=== PATIENT | male | born 1955 | race Caucasian/White ===

== ENCOUNTER 2016-11-28 04:01 | Observation (INO) | payer OTHER ==
[~2016-11-28] VITALS: Ht 175.3 cm; Wt 70.0 kg
[~2016-11-28 04:01] MED LIST: ALBU0.08 NEB; BUPR1TAB29 PO; CIAL2.5T PO; CYCL5TAB PO; DEXI60CA3 PO; GABA800T PO; METF500T PO; METHY10 PO; MIRA0.25 PO; MS C15TA7 PO; NITR.4; RITA20CA PO; TERA2CAP3 PO; TOPI1TAB97 PO; VENL150C39 PO; ZOCO20TA PO
[2016-11-28 04:05] VITALS: BP 145/87; PULSE 68; RESP 16; TEMP 98.7; O2SAT 99
[2016-11-28] MEDS ORDERED: RITA20CA PO (04:21)
[2016-11-28] MEDS ORDERED: ASPI325T PO (04:24)
[2016-11-28] MEDS ORDERED: MIRA0.25 PO (04:24)
[2016-11-28] MEDS ORDERED: DEXI60CA PO (04:24)
[2016-11-28] MEDS ORDERED: NITR0.4S SL (04:24)
[2016-11-28] MEDS: NITROGLYCERIN 0.4 MG SL 25 TABS/BTL SL SCH ×4 (04:41→04:55)
[2016-11-28] MEDS ORDERED: SODIUM CHLORIDE 0.9% FLUSH 5 ML FLUSH IVF PRN ×2 (04:45→06:00)
[2016-11-28] MEDS ORDERED: MORPHINE SULFATE 4 MG/ML INJ IV PUSH ONE (04:45)
[2016-11-28] MEDS ORDERED: SODIUM CHLORID 0.9% 500 ML INJ 500 ML IV ONE ×2 (04:45→06:00)
--- NOTE | 2016-11-28 04:53 | RADRPT ---
EXAM DATE/TIME: 11/28/2016 04:37 [facility] COMPARISON: No previous studies available for comparison. INDICATIONS : Chest pain. MEDICAL HISTORY : None. SURGICAL HISTORY : None. ENCOUNTER: Initial ACUITY: 1 day PAIN SCORE: 8/10 LOCATION: Bilateral chest FINDINGS: A single view of the chest demonstrates the lungs to be symmetrically aerated without evidence of mas s, infiltrate or effusion. The cardiomediastinal contours are unremarkable. Osseous structures are intact. CONCLUSION: The lungs are clear. Otis Armendariz MD on November 28, 2016 at 4:52 Board Certified Radiologist. This report was verified electronically.
--- NOTE | 2016-11-28 04:56 | PD ---
HPI Chief Complaint: Chest Pain Time Seen by Provider: 04:35 Travel History International Travel<30 days: No Contact w/Intl Traveler<30days: No Traveled to known affect area: No History of Present Illness HPI 61-year-old male arrives complaining of chest pain. It comes and goes. It starts at rest. It's worse with exertion. It is towards the left margin of the sternum. There is radiation into the left arm. He underwent coronary catheterization greater than 5 years ago and was told he had mild coronary disease. No cough or fever. He takes 325 mg of aspirin daily. In the ER at rest the pain is 7/10. Patient has a history of diabetes. He denies a family history of early onset coronary artery disease. He denies smoking. PFSH Past Medical History ADHD: Yes Anxiety: Yes Depression: Yes Chest Pain: Yes Cerebrovascular Accident: Yes Diabetes: Yes Patient Takes Glucophage: Yes Gastrointestinal Disorders: Yes (GASTROPRESIS) GERD: Yes Genitourinary: Yes (STAGE III KIDNEY DISEASE) Hiatal Hernia: Yes Kidney Stones: Yes Medical other: Yes (NARCOLEPSY) Respiratory: Yes Immunizations Current: Yes Migraines: Yes Pancreatitis: Yes Tetanus Vaccination: Unknown Past Surgical History Cholecystectomy: Yes Other Surgery: Yes (LEFT LEG SX) Social History Alcohol Use: No Tobacco Use: No Substance Use: No Allergies-Medications (Allergen,Severity, Reaction): Coded Allergies: Dilaudid (Verified Allergy, Severe, Itching, 11/28/16) Fentanyl (Verified Allergy, Severe, Itching, 11/28/16) Hydrocodone (Verified Allergy, Severe, Itching, 11/28/16) Oxycodone (Verified Allergy, Severe, Itching, 11/28/16) Seroquel (Verified Allergy, Severe, Itching, 11/28/16) Sulfa (Verified Allergy, Severe, Hives, 11/28/16) Tramadol (Verified Allergy, Severe, Itching, 11/28/16) Reglan (Verified Allergy, Intermediate, muscle fatigue, 11/28/16) Ibuprofen (Verified Adverse Reaction, Unknown, 11/28/16) can not take because of kidneys Tylenol (Verified Adverse Reaction, Unknown, 11/28/16) can not take because of liver problems Reported Meds & Prescriptions Reported Meds & Active Scripts Active Bupropion HCl ER 12 HR (Bupropion HCl) 150 Mg Tab 150 Mg PO DAILY Venlafaxine ER 24 HR (Venlafaxine HCl) 150 Mg Cap 150 Mg PO DAILY Reported Nitrostat SL (Nitroglycerin) 0.4 Mg Subl 0.4 Mg SL DIRECTED PRN 1 tablet under the tongue as needed for chest pain. Repeat every 5 minutes for a total of 3 DOSES or call 911 if NO relief. Aspirin 325 Mg Tab 325 Mg PO DAILY Mirapex (Pramipexole Dihydrochloride) 0.25 Mg Tab 0.5 Mg PO HS Dexilant (Dexlansoprazole) 60 Mg Cap 60 Mg PO DAILY Ritalin LA 24 HR (Methylphenidate HCl) 20 Mg Caper 20 Mg PO AT NOON Gabapentin 800 Mg Tab 800 Mg PO BID Ritalin LA 24 HR (Methylphenidate HCl) 20 Mg Caper 40 Mg PO DAILY Ritalin IR (Methylphenidate HCl) 10 Mg Tab 20 Mg PO BIDAC Zocor (Simvastatin) 20 Mg Tab 20 Mg PO DAILY Cialis (Tadalafil) 2.5 Mg Tab 2.5 Mg PO DAILY Do not exceed 1 dose/day. Terazosin (Terazosin HCl) 2 Mg Cap 2 Mg PO HS Topiramate 25 Mg Tab 25 Mg PO BID Albuterol Neb (Albuterol Sulfate) 2.5 Mg/3 Ml Neb 2.5 Mg NEB Q4HR NEB PRN Metformin (Metformin HCl) 500 Mg Tab 500 Mg PO BIDPC With meals Review of Systems Except as stated in HPI: all other systems reviewed are Neg Physical Exam Narrative GENERAL: 61-year-old male no acute distress SKIN: Warm and dry. HEAD: Atraumatic. Normocephalic. EYES: Pupils equal and round. No scleral icterus. No injection or drainage. ENT: No nasal bleeding or discharge. Mucous membranes pink and moist. NECK: Trachea midline. No JVD. CARDIOVASCULAR: Regular rate and rhythm. No murmur appreciated. RESPIRATORY: No accessory muscle use. Clear to auscultation. Breath sounds equal bilaterally. GASTROINTESTINAL: Abdomen soft, non-tender, nondistended. Hepatic and splenic margins not palpable. MUSCULOSKELETAL: No obvious deformities. No clubbing. No cyanosis. No edema. NEUROLOGICAL: Awake and alert. No obvious cranial nerve deficits. Motor grossly within normal limits. Normal speech. PSYCHIATRIC: Appropriate mood and affect; insight and judgment normal. Data Data Last Documented VS Vital Signs Date Time Temp Pulse Resp B/P Pulse Ox O2 Delivery O2 Flow Rate FiO2 11/28/16 04:05 98.7 68 16 145/87 99 Room Air Orders Electrocardiogram (11/28/16 04:35) Basic Metabolic Panel (Bmp) (11/28/16 04:35) Ckmb (Isoenzyme) Profile (11/28/16 04:35) Complete Blood Count With Diff (11/28/16 04:35) Magnesium (Mg) (11/28/16 04:35) Prothrombin Time / Inr (Pt) (11/28/16 04:35) Act Partial Throm Time (Ptt) (11/28/16 04:35) Troponin I (11/28/16 04:35) Chest, Single Ap (11/28/16 04:35) Ecg Monitoring (11/28/16 04:35) Bilateral Bp Monitoring (11/28/16 04:35) Iv Access Insert/Monitor (11/28/16 04:35) Oximetry (11/28/16 04:35) Oxygen Administration (11/28/16 04:35) Morphine Inj (Morphine Inj) (11/28/16 04:45) Sodium Chloride 0.9% Flush (Ns Flush) (11/28/16 04:45) Nitroglycerin Sl (Nitrostat Sl) (11/28/16 04:45) Sodium Chlorid 0.9% 500 Ml Inj (Ns 500 M (11/28/16 04:45) CKMB (11/28/16 04:40) CKMB% (11/28/16 04:40) Sodium Chlorid 0.9% 500 Ml Inj (Ns 500 M (11/28/16 06:00) Activity Bed Rest With Brp (11/28/16 05:55) Vital Signs (Adult) Q4H (11/28/16 05:55) Cardiac Rhythm .As Directed (11/28/16 05:55) ^ Notify Dr: Other .PRN (11/28/16 05:55) ^ Notify Dr. Parameters (11/28/16 05:55) Resp Oxygen Nasal Cannula (11/28/16 ) Ckmb (Isoenzyme) Profile (11/28/16 05:55) Ckmb (Isoenzyme) Profile (11/28/16 08:55) Troponin I (11/28/16 05:55) Troponin I (11/28/16 08:55) Electrocardiogram (11/28/16 05:55) Electrocardiogram (11/28/16 08:55) ^ Obtain (11/28/16 05:55) Sodium Chloride 0.9% Flush (Ns Flush) (11/28/16 06:00) Sodium Chloride 0.9% Flush (Ns Flush) (11/28/16 09:00) Morphine Inj (Morphine Inj) (11/28/16 06:00) Nitroglycerin 2% Oint (Nitroglycerin 2% (11/28/16 06:00) Nitroglycerin Sl (Nitrostat Sl) (11/28/16 06:00) Aspirin (Aspirin) (11/28/16 09:00) Temazepam (Restoril) (11/28/16 06:00) Alprazolam (Xanax) (11/28/16 06:00) Admit Order (Ed Use Only) (11/28/16 05:55) Labs Laboratory Tests Test 11/28/16 04:40 White Blood Count 7.5 TH/MM3 Red Blood Count 5.81 MIL/MM3 Hemoglobin 15.2 GM/DL Hematocrit 45.3 % Mean Corpuscular Volume 78.0 FL Mean Corpuscular Hemoglobin 26.2 PG Mean Corpuscular Hemoglobin 33.6 % Concent Red Cell Distribution Width 13.6 % Platelet Count 189 TH/MM3 Mean Platelet Volume 9.0 FL Neutrophils (%) (Auto) 55.6 % Lymphocytes (%) (Auto) 30.4 % Monocytes (%) (Auto) 8.9 % Eosinophils (%) (Auto) 4.5 % Basophils (%) (Auto) 0.6 % Neutrophils # (Auto) 4.2 TH/MM3 Lymphocytes # (Auto) 2.3 TH/MM3 Monocytes # (Auto) 0.7 TH/MM3 Eosinophils # (Auto) 0.3 TH/MM3 Basophils # (Auto) 0.0 TH/MM3 CBC Comment DIFF FINAL Differential Comment Prothrombin Time 11.0 SEC Prothromb Time International 1.0 RATIO Ratio Activated Partial 26.9 SEC Thromboplast Time Sodium Level 144 MEQ/L Potassium Level 3.5 MEQ/L Chloride Level 111 MEQ/L Carbon Dioxide Level 22.2 MEQ/L Anion Gap 11 MEQ/L Blood Urea Nitrogen 19 MG/DL Creatinine 1.11 MG/DL Estimat Glomerular Filtration 68 ML/MIN Rate Random Glucose 147 MG/DL Calcium Level 8.7 MG/DL Magnesium Level 2.2 MG/DL Total Creatine Kinase 1782 U/L Creatine Kinase MB 9.9 NG/ML Creatine Kinase MB % 0.6 % Troponin I 0.04 NG/ML MDM Medical Decision Making Medical Screen Exam Complete: Yes Emergency Medical Condition: Yes Medical Record Reviewed: Yes Differential Diagnosis NSTEMI, unstable angina, coronary vasospasm, PE, PTX, aortic dissection, pericarditis, myocarditis, endocarditis, PNA, esophageal disease, aneurysm, musculoskeletal etiologies, anxiety, cocaine/sympathomimetic abuse Narrative Course EKG reveals sinus rhythm at a rate of [address] elevation FL present Q waves present in leas III Tn 0.04 Total CK 1782 Last 24 hours Impressions Chest X-Ray 11/28/16 0435 Signed Impressions: Service Date/Time: Monday, November 28, 2016 04:37 - CONCLUSION: The lungs are clear. Otis Armendariz MD CBC & BMP Diagram 11/28/16 04:40 Further evaluation will be performed and the chest pain center. Diagnosis Primary Impression: Chest pain Qualified Code: R07.9 - Chest pain, unspecified type Admitting Information Admitting Physician Requests: Observation René Moulton MD Nov 28, 2016 04:56
[2016-11-28 05:17] LABS: AUTOMATED NEUTROPHIL # 4.2 TH/MM3 (1.8-7.7); BASOPHIL % 0.6 % (0.0-2.0); EOSINOPHIL # 0.3 TH/MM3 (0-0.4); EOSINOPHIL % 4.5 % (0.0-4.0); HEMATOCRIT 45.3 % (39.0-51.0); HEMO FLAGS DIFF FINAL; LYMPH % 30.4 % (9.0-44.0); LYMPHOCYTE # 2.3 TH/MM3 (1.0-4.8); MEAN CORPUSCULAR HEMOGLOBIN 26.2 PG (27.0-34.0); MEAN CORPUSCULAR HGB CONC 33.6 % (32.0-36.0); MONO % 8.9 % (0.0-8.0); NEUT % 55.6 % (16.0-70.0); PLATELET COUNT 189 TH/MM3 (150-450); RED BLOOD COUNT 5.81 MIL/MM3 (4.50-5.90); RED CELL DISTRIBUTION WIDTH 13.6 % (11.6-17.2); WHITE BLOOD COUNT 7.5 TH/MM3 (4.0-11.0)
[2016-11-28 05:35] LABS: APTT (PATIENT) 26.9 SEC (24.3-30.1)
[2016-11-28 05:38] LABS: BICARBONATE 22.2 MEQ/L (21.0-32.0); MAGNESIUM 2.2 MG/DL (1.5-2.5); POTASSIUM 3.5 MEQ/L (3.5-5.1)
[2016-11-28 05:59] LABS: CKMB 9.9 NG/ML (0.5-3.6)
[2016-11-28 06:00] VITALS: BP 131/71; PULSE 68; RESP 14; O2SAT 99
[2016-11-28] MEDS ORDERED: NITROGLYCERIN 0.4 MG SL 25 TABS/BTL SL PRN (06:00)
[2016-11-28] MEDS ORDERED: TEMAZEPAM 15 MG CAP PO PRN (06:00)
[2016-11-28] MEDS ORDERED: NITROGLYCERIN 2% OINT 1 GM PACKET TOP SCH (06:00)
[2016-11-28] MEDS ORDERED: ALPRAZolam 0.25 MG TAB PO PRN (06:00)
[2016-11-28] MEDS ORDERED: MORPHINE SULFATE 4 MG/ML INJ IV PRN (06:00)
[2016-11-28 06:06] VITALS: O2SAT 98
[2016-11-28 08:16] LABS: CKMB 8.9 NG/ML (0.5-3.6)
[2016-11-28] MEDS ORDERED: ASPIRIN 325 MG TAB PO SCH (09:00)
[2016-11-28] MEDS ORDERED: SODIUM CHLORIDE 0.9% FLUSH 5 ML FLUSH IVF SCH (09:00)
[2016-11-28] MEDS ORDERED: OMEG5CAP PO (09:59)
[2016-11-28] MEDS ORDERED: MULT-135 PO (09:59)
[2016-11-28] MEDS ORDERED: METHY10 PO (09:59)
[2016-11-28] MEDS ORDERED: TOPI1TAB36 PO (09:59)
[2016-11-28] MEDS ORDERED: VITA100T5 PO (09:59)
[2016-11-28] MEDS ORDERED: ALBUAER3 INH (09:59)
[2016-11-28] MEDS ORDERED: SODIUM CHLOR 0.9% 1000 ML INJ 1,000 ML IV SCH (10:33)
[2016-11-28] MEDS ORDERED: DEXTROSE 50% IN WATER 50 ML VIAL(D50) IV PRN (10:45)
[2016-11-28] MEDS ORDERED: GABAPENTIN 400 MG CAP PO SCH (10:45)
[2016-11-28] MEDS ORDERED: GLUCAGON 1 MG/ML VIAL IM/SQ PRN (10:45)
[2016-11-28] MEDS ORDERED: INSULIN ASPART SUPPLEMENTAL SCALE SQ SCH (11:00)
[2016-11-28 11:12] LABS: TOTAL BILIRUBIN ADULT 0.3 MG/DL (0.2-1.0)
[2016-11-28 11:13] LABS: INDIRECT BILIRUBIN 0.2 MG/DL (0.0-0.8)
[2016-11-28] MEDS ORDERED: PANTOPRAZOLE SOD 40 MG DELAYED RELEASE TAB PO SCH (11:15)
[2016-11-28 11:30] LABS: CKMB 8.2 NG/ML (0.5-3.6)
--- NOTE | 2016-11-28 12:41 | EKG ---
Date Performed: 11/28/2016 Time Performed: 04:04:48 PTAGE: 61 years EKG: Sinus rhythm WITH SINUS ARRHYTHMIA POSSIBLE LATERAL MYOCARDIAL INFARCTION ABNORMAL ECG NO PREVIOUS TRACING DOCTOR: Dillan Hubbard Interpretating Date/Time 11/28/2016 12:40:01
--- NOTE | 2016-11-28 12:44 | EKG ---
Date Performed: 11/28/2016 Time Performed: 07:06:42 PTAGE: 61 years EKG: SINUS BRADYCARDIA POSSIBLE LATERAL MYOCARDIAL INFARCTION ABNORMAL ECG INTERPRETATION BASED ON A DEFAULT AGE OF 42 YEARS NO PREVIOUS TRACING DOCTOR: Dillan Hubbard Interpretating Date/Time 11/28/2016 12:43:26
[2016-11-28] MEDS ORDERED: REGADENOSON INJ 0.4 MG/5 ML SYR ONE (12:45)
[2016-11-28 14:21] VITALS: BP 129/76; PULSE 59; RESP 17; O2SAT 98
--- NOTE | 2016-11-28 14:40 | TR ---
Date Performed: 11/28/2016 Time Performed: 12:53:50 DOCTOR: Dillan Hubbard DRUG LIST: CLINICAL HISTORY: CHEST PAIN REASON FOR TEST: CHEST PAIN REASON FOR ENDING: OBSERVATION: CONCLUSION: Lexiscan stress test was performed under standard four minute protocol. Radionuclide was injected one minute prior to ending the test. Developed chest pressure and shortness of breath. No electrocardiographic abnormalities were present to suggest ischemia. Recovery was quick and uneven tful with resolution of symptoms. Nuclear imaging and interpretation are pending. COMMENTS:
--- NOTE | 2016-11-28 14:46 | RADRPT ---
EXAM DATE/TIME: 11/28/2016 12:22 [facility] COMPARISON: No previous studies available for comparison. INDICATIONS : Left sided chest pain radiating to left arm. Angina. DOSE: 28.7 mCi Tc99m Myoview at stress. 8.6 mCi Tc99m Myoview at rest. 0.4 mg Lexiscan STRESS SYMPTOMS: Chest pressure and shortness of breath EJECTION FRACTION: 68% MEDICAL HISTORY : Diabetes mellitus type 2. Gastroparesis. Pancreatitis. GERD, stage III kidney disease and hernia. SURGICAL HISTORY : Cholecystectomy. Rotator cuff, right. Total knee replacement, left. Carpal tunnel and spinal fusion. ENCOUNTER: Initial ACUITY: 2 days PAIN SCALE: 7/10 LOCATION: Left chest TECHNIQUE: The patient underwent pharmacologic stress with infusion of prescribed dose. Continuous ECG tracing was monitored during stress. Gated SPECT imaging was performed after stress and conventional SPECT i maging was performed at rest. The examination was performed on a SPECT/CT scanner, both attenuation and non-corrected datasets were reviewed. FINDINGS: DISTRIBUTION: The maximum perfused segment at stress is in the anteroseptal wall. PERFUSION STUDY: The pattern of perfusion at stress is within normal limits. GATED STUDY: There is intact wall motion and thickening without hypokinetic or dyskinetic segments. CONCLUSION: 1. No fixed or reversible perfusion defect is identified. 2. Normal left ventricle wall motion with a calculated ejection fraction of 68%. RISK CATEGORY: Low (<1% Annual Mortality Rate) Ahsan Stringer MD on November 28, 2016 at 14:43 Board Certified Radiologist. This report was verified electronically.
--- NOTE | 2016-11-28 15:32 | HHI.DCPOC ---
Discharge Care Plan Diagnosis: (1) Chest pain (2) DM (diabetes mellitus) (3) Hypertension (4) Hyperlipidemia (5) Elevated CPK Goals to Promote Your Health HAVE CPK RECHECKED WITH YOUR PRIMARY CARE DOCTOR IN 2-3 DAYS. DISCONTINUE ZOCOR AND DISCUSS WITH YOUR PRIMARY CARE DOCTOR. TAKE EFFEXOR EVERY OTHER DAY FOR TWO WEEKS AND THEN DISCONTINUE IT. * To prevent worsening of your condition and complications * To maintain your health at the optimal level Directions to Meet Your Goals Take your medications as prescribed Follow your dietary instruction Follow activity as directed Keep your appointments as scheduled Take your immunizations and boosters as scheduled If your symptoms worsen call your PCP, if no PCP go to Urgent Care Center or Emergency Room Smoking is Dangerous to Your Health. Avoid second hand smoke Call the 24-hour hour crisis hotline for domestic abuse at Mario Alberto Jaquez Nov 28, 2016 15:32
[2016-11-28 16:20] VITALS: PULSE 61
[2016-11-28 16:41] VITALS: O2SAT 98
[2016-11-28] MEDS ORDERED: TERAZOSIN HCL 1 MG CAP PO SCH (21:00)
--- NOTE | 2016-11-28 23:05 | EKG ---
Date Performed: 11/28/2016 Time Performed: 10:01:38 PTAGE: 61 years EKG: SINUS BRADYCARDIA POSSIBLE LATERAL MYOCARDIAL INFARCTION ABNORMAL ECG PREVIOUS TRACING : 11/28/2016 07.06 Compared to prior tracing no significant change DOCTOR: Prashanth Moulton Interpretating Date/Time 11/28/2016 23:04:47
--- NOTE | 2016-11-29 09:34 | MH ---
cc: EMMY JOINER DATE OF ADMISSION: 11/28/2016 DATE OF : 1955 CHIEF COMPLAINT Chest pain. HISTORY OF PRESENT ILLNESS This is a 61-year-old male who presents to the ED via [facility] with a complaint of discomfort in his chest that awoke him about quarter to three this morning. The discomfort was in center/left of his chest. He described it as a pressure. It was 8-9 out of 10 at its worse level, currently about a 4 out of 10. He states it is still there. He has really found nothing to worsen it. IV morphine in the ER did seem to help. He states he was not given sublingual nitroglycerin secondary to the fact that he takes daily Cialis for ED. He states he was told that he had mild coronary artery disease via heart catheterization. When asked how long ago that was he states "I don't know, a long time ago." Asked if more than 5 years ago, he stated "yes", more than 10 years ago, "yes", but that he really was not sure. He also states he has had stress tests in the past. Cannot recall the last time he had a nuclear stress test, states its been years. Denies recent illnesses. Denies fevers or chills. He states he actually has been in multiple ERs over the years for chest discomfort on a regular basis. Basically discovered that it was related to stress and depression. He states that it seems to have improved after he got a divorce. He is currently engaged to someone else and states he has been under a lot less stress and the discomfort does not recur as much. He is not followed by a custom protection officer. His primary care physician is Dr. Villela, but he is retired from the [employer]. PAST MEDICAL HISTORY 1. Diabetes. 2. Hyperlipidemia. 3. Hypertension. 4. Stated history of CAD. 5. Depression. 6. Anxiety. 7. Kidney stones. 8. Narcolepsy. 9. Sleep apnea. 10. BPH. 11. History of stage II liver disease which he states is RIOS. FAMILY HISTORY Denies family history of CAD. SOCIAL HISTORY Quit smoking 35 years ago, prior to that he smoked three packs of cigarettes daily for 10 years. He states he has had no alcohol or illicit drugs in over 35 years. PAST SURGICAL HISTORY 1. Heart catheterization with intervention. 2. He has had arthroscopy of his left knee x2. 3. Right rotator cuff repair. 4. Lumbar fusion. 5. Cholecystectomy. ALLERGIES DILAUDID, FENTANYL, HYDROCODONE, OXYCODONE, SEROQUEL, SULFA, TRAMADOL, REGLAN. Ibuprofen and Tylenol he was told avoid secondary to stage II kidney disease and liver disease. MEDICATIONS 1. Terazosin. 2. Gabapentin. 3. Topamax. 4. Bupropion. 5. Venlafaxine. 6. Albuterol inhaler. 7. Metformin. 8. Mirapex. 9. Simvastatin. 10. Multivitamin. 11. Nitrostat. 12. Aspirin. 13. Ermias-3 fatty acids. 14. Cialis. 15. Dexilant. 16. Ritalin. 17. Ascorbic acid. REVIEW OF SYSTEMS GENERAL: Denies fever or chills. Denies recent illnesses. HEENT: Denies headache, earache, sore throat, difficulty swallowing. CARDIOVASCULAR: Describes the discomfort as mentioned above. Denies diaphoresis. Denies sensation of heart beating rapidly or irregularly. Denies syncope. RESPIRATORY: Denies shortness of breath or inspirational chest discomfort. Denies coughing, wheezing or hemoptysis. GI: Denies nausea or vomiting. Denies diarrhea, constipation, blood in stool. Denies abdominal pain. MUSCULOSKELETAL: He complains of chronic back pain. Denies calf pain or swelling. NEUROVASCULAR: Denies headache or dizziness. ENDOCRINE: Denies polyuria or polydipsia. HEMATOLOGIC: Denies easy bruising. SKIN: Denies rash or itching. PHYSICAL EXAMINATION VITAL SIGNS: In the emergency department initially included a blood pressure 145/87, heart rate 68, respiration 16, pulse oximetry 99% on room air and he was afebrile. Most recent vital signs include blood pressure 131/71, heart rate 68, respirations 14, pulse oximetry 99% on room air. GENERAL: The patient is seen in the examination room in no apparent distress. He is pleasant. He speaks in clear and complete sentences. HEENT: Head is atraumatic and normocephalic. NECK: Neck is supple without lymphadenopathy. Trachea is midline. No JVD or carotid bruits. CARDIOVASCULAR: Regular rate and rhythm without murmur, gallop or rub. RESPIRATORY: Lungs are clear to auscultation bilaterally. No wheezing, rales or rhonchi. There is no reproducible chest wall discomforts. No use of accessory muscles. GI: Abdomen is nontender, nondistended. Bowel sounds are normal. No guarding or rebound. No obvious pulsatile mass or bruit. No CVA tenderness. Strong femoral pulses bilaterally. MUSCULOSKELETAL: Patient moving upper and lower extremities freely. No joint tenderness or edema. No calf tenderness or edema, no Homans' sign. Strong pulses in upper and lower extremities. NEUROVASCULAR: The patient is alert and oriented. Cranial II-XII grossly intact. No focal deficits and speech is clear. SKIN: No rash and turgor is normal. LABORATORY DATA CBC is unremarkable. Coagulation studies are unremarkable. A basic metabolic panel has a BUN mildly elevated at 19. Glucose elevated at 147, GFR decreased 68, otherwise unremarkable BMP. Serial cardiac enzymes have troponins that are normal for the first sets 0.04 and 0.04. His CPKs were elevated with initial one being 1782 and a second being 1483. CK-MB also were elevated at 9.9 and 8.9, however, CK-MB percents were normal x2, third set is pending. IMAGING STUDIES Single view chest x-ray read by radiology as lungs are clear. EKGs Have been sinus rhythm, sinus bradycardia. One EKG showed non-specific lateral ST-T changes. ASSESSMENT AND PLAN 1. Chest pain: The patient will continue to have cardiac enzymes and EKGs for ruling out purposes. His CPKs are elevated but percent was normal for first two sets. Troponins were normal on first two sets. If third troponin were to be normal he will be stress tested with a Lexiscan. If that were to be unremarkable, he will be discharged home. He was given a liter of IV fluids in the ER. He will be given another liter of IV fluids here. He needs to have his CPKs re-addressed with his PCP within the next couple of days. 2. Diabetes: He was on Metformin. Will have sliding scale insulin coverage. He needs to follow a diabetic diet. 3. Hyperlipidemia: ___ statin. He needs to discontinue statin until advised by his primary care physician otherwise. 4. Stated history of CAD: Will reassess with stress testing. 5. Depression: Continue current medication. 6. Anxiety: Continue current medication. 7. BPH: Continue current medication. The patient is stable at this time. He is agreeable to this plan. Dictated by: Mario Alberto Jaquez PA-C MD JAIRO Parmar/CARI /10:24 AM /9:32 AM
[2016-12-15] MEDS ORDERED: VENL150C39 PO (09:52)
[2016-12-15] MEDS ORDERED: BUPR1TAB29 PO (09:52)
[2017-01-12] MEDS ORDERED: ATOR40TA16 PO (09:31)
[2017-01-12] MEDS ORDERED: MIRA0.25 PO (09:48)
[2017-02-28] MEDS ORDERED: VENL150C39 PO (16:13)
[2017-02-28] MEDS ORDERED: BUPR1TAB29 PO (16:14)
== END 2016-11-28 17:30 | disposition home or self-care (01) ==
LOC: NEPE 04:01 → NEDA 05:57 → NEPHCDU 11:48
PROVIDERS: ADMIT Family Medicine; ATTEND Family Medicine
DX: R07.9 Chest pain, unspecified (principal); E11.9 Type 2 diabetes mellitus without complications; I10 Essential (primary) hypertension; E78.5 Hyperlipidemia, unspecified; I25.10 Atherosclerotic heart disease of native coronary artery without angina pectoris; R94.31 Abnormal electrocardiogram [ECG] [EKG]; F32.9 Major depressive disorder, single episode, unspecified; N40.0 Benign prostatic hyperplasia without lower urinary tract symptoms; K21.9 Gastro-esophageal reflux disease without esophagitis; G47.30 Sleep apnea, unspecified; F90.9 Attention-deficit hyperactivity disorder, unspecified type; F41.9 Anxiety disorder, unspecified; G47.419 Narcolepsy without cataplexy; Z86.73 Personal history of transient ischemic attack (TIA), and cerebral infarction without residual deficits; Z87.442 Personal history of urinary calculi; Z87.891 Personal history of nicotine dependence; Z98.1 Arthrodesis status; Z96.652 Presence of left artificial knee joint; Z79.84 Long term (current) use of oral hypoglycemic drugs
CPT/HCPCS: 71010; 78452; 80048; 80076; 82550; 82552; 83735; 84484; 85025; 85610; 85730; 93005; 93017; 96361; 96374; 99285; A9502; G0378; J2270; J2785; J7030; J7040

== ENCOUNTER 2017-01-17 14:19 | Emergency (ER) | payer OTHER ==
[~2017-01-17] VITALS: Ht 167.6 cm; Wt 83.0 kg
[~2017-01-17 14:19] MED LIST changes: -ALBU0.08 NEB; +ALBUAER3 INH; +ASPI325T PO; +ATOR40TA16 PO; -CYCL5TAB PO; +DEXI60CA PO; -DEXI60CA3 PO; -GABA800T PO; -METF500T PO; -MS C15TA7 PO; +MULT-135 PO; -NITR.4; +OMEG5CAP PO; +TOPI1TAB36 PO; -TOPI1TAB97 PO; +VITA100T5 PO; -ZOCO20TA PO
[2017-01-17 14:27] VITALS: BP 164/78; PULSE 88; RESP 15; TEMP 97.8; O2SAT 99
--- NOTE | 2017-01-17 14:45 | PD ---
HPI Chief Complaint: Musculoskeletal Complaint Time Seen by Provider: 14:45 Travel History International Travel<30 days: No Contact w/Intl Traveler<30days: No Traveled to known affect area: No History of Present Illness HPI 61-year-old male presents to emergency Department with right sided thumb swelling, erythema, and pain. Patient denies any specific injury. He denies fever chills or any type of bite or skin injury. Patient has no history of gout in the past. 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 Pain today is 10 over 10 with any movement or palpation. Patient denies any change in his diet and recent weeks. He states it is been sore off and on over the past couple of weeks but much worse upon waking this morning. Patient has multiple allergies including dialyzed, fentanyl, hydrocodone, ibuprofen, oxycodone, Reglan, Seroquel, sulfa, tramadol, and Tylenol. PFSH Past Medical History ADHD: Yes Anxiety: Yes Depression: Yes Cardiovascular Problems: Yes ("MILD HEART DISEASE") Chest Pain: Yes Cerebrovascular Accident: Yes (TIA) Diabetes: Yes Gastrointestinal Disorders: Yes (GASTROPRESIS) GERD: Yes Genitourinary: Yes (STAGE III KIDNEY DISEASE) Hiatal Hernia: Yes Kidney Stones: Yes Respiratory: Yes Immunizations Current: Yes Migraines: Yes Pancreatitis: Yes Past Surgical History Cholecystectomy: Yes Other Surgery: Yes (LEFT LEG SX) Social History Alcohol Use: No Tobacco Use: No Substance Use: No Allergies-Medications (Allergen,Severity, Reaction): Coded Allergies: Dilaudid (Verified Allergy, Severe, Itching, 01/17/17) Fentanyl (Verified Allergy, Severe, Itching, 01/17/17) Hydrocodone (Verified Allergy, Severe, Itching, 01/17/17) Oxycodone (Verified Allergy, Severe, Itching, 01/17/17) Seroquel (Verified Allergy, Severe, Itching, 01/17/17) Sulfa (Verified Allergy, Severe, Hives, 01/17/17) Tramadol (Verified Allergy, Severe, Itching, 01/17/17) Reglan (Verified Allergy, Intermediate, muscle fatigue, 01/17/17) Ibuprofen (Verified Adverse Reaction, Unknown, 01/17/17) can not take because of kidneys Tylenol (Verified Adverse Reaction, Unknown, 01/17/17) can not take because of liver problems Reported Meds & Prescriptions Reported Meds & Active Scripts Active Mirapex (Pramipexole Dihydrochloride) 0.25 Mg Tab 2 Tab PO HS Atorvastatin (Atorvastatin Calcium) 40 Mg Tab 40 Mg PO HS Reported Venlafaxine ER 24 HR (Venlafaxine HCl) 150 Mg Cap 150 Mg PO DAILY Bupropion HCl ER 12 HR (Bupropion HCl) 150 Mg Tab 150 Mg PO DAILY Vitamin C (Ascorbic Acid) Unknown Strength Tab 1 Tab PO BID Fish Oil 1200 mg (Carefree-3 Fatty Acids) 1 Cap Cap 1,200 Mg PO BID Multi Vitamin (Multiple Vitamin) 1 Tab Tab 1 Tab PO DAILY AT 12NOON Ritalin IR (Methylphenidate HCl) 10 Mg Tab 10 Mg PO DAILY AT 12NOON Topiramate 50 Mg Tab 50 Mg PO BID In the am and at bedtime Proair Hfa 8.5 GM Inh (Albuterol Sulfate) 90 Mcg/Act Aer 2 Puff INH Q4-6H PRN 108 mcg/actuation Aspirin 325 Mg Tab 325 Mg PO HS Dexilant (Dexlansoprazole) 60 Mg Cap 60 Mg PO DAILY Ritalin LA 24 HR (Methylphenidate HCl) 20 Mg Caper 20 Mg PO AT NOON Ritalin LA 24 HR (Methylphenidate HCl) 20 Mg Caper 40 Mg PO DAILY Ritalin IR (Methylphenidate HCl) 10 Mg Tab 20 Mg PO DAILY IN THE AM Cialis (Tadalafil) 2.5 Mg Tab 2.5 Mg PO DAILY Do not exceed 1 dose/day. Terazosin (Terazosin HCl) 2 Mg Cap 2 Mg PO HS Review of Systems Except as stated in HPI: all other systems reviewed are Neg General / Constitutional: No: Fever Eyes: No: Visual changes HENT: No: Headaches Cardiovascular: No: Chest Pain or Discomfort Respiratory: No: Shortness of Breath Gastrointestinal: No: Abdominal Pain Genitourinary: No: Dysuria Musculoskeletal: Positive: Arthralgias, Limited ROM, Pain (see history present illness.) Skin: No Rash Neurologic: No: Weakness Psychiatric: No: Depression Endocrine: No: Polydipsia Hematologic/Lymphatic: No: Easy Bruising Physical Exam Narrative GENERAL: Patient appears in no acute distress. SKIN: Warm and dry. Normal color. Normal turgor. Patient has erythema at the base of the right MIP joint of the thumb. There is no swelling or signs of skin injury or bite. HEAD: Atraumatic. Normocephalic. EYES: Pupils equal and round. No scleral icterus. No injection or drainage. ENT: No nasal bleeding or discharge. Mucous membranes pink and moist. Pharynx is normal. NECK: Trachea midline. Neck is supple. CARDIOVASCULAR: Regular rate and rhythm. RESPIRATORY: No accessory muscle use. Clear to auscultation. Breath sounds equal bilaterally. MUSCULOSKELETAL: Extremities without clubbing, cyanosis, or edema. No obvious deformities. NEUROLOGICAL: Awake and alert. No obvious cranial nerve deficits. Motor grossly within normal limits. Five out of 5 muscle strength in the arms and legs. Normal speech. PSYCHIATRIC: Appropriate mood and affect; insight and judgment normal. Data Data Last Documented VS Vital Signs Date Time Temp Pulse Resp B/P Pulse Ox O2 Delivery O2 Flow Rate FiO2 01/17/17 14:27 97.8 88 15 164/78 99 MDM Medical Decision Making Medical Screen Exam Complete: Yes Emergency Medical Condition: Yes Differential Diagnosis Right thumb pain. Right thumb arthralgia. Gouty arthritis. Narrative Course Patient is medically stable at time of exam. 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 Patient will be treated on an outpatient basis with prednisone 20 mg twice a day. Is given a first dose of 60 mg prednisone by mouth now. Patient is given information regarding gout and diet. Patient should follow with his primary care physician in the next week to ensure improvement. Patient should return to work Department with worsening symptoms as discussed. 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 Patient will be treated on an outpatient basis with prednisone 20 mg twice a day. Is given a first dose of 60 mg prednisone by mouth now. Patient is given information regarding gout and diet. Patient should follow with his primary care physician in the next week to ensure improvement. Patient should return to work Department with worsening symptoms as discussed. Med/Other Pt SpecificInfo: Prescription(s) given Disposition: DISCHARGE HOME Condition: Stable Flavio Arriola Jan 17, 2017 14:45
[2017-01-17] MEDS ORDERED: predniSONE 20 MG TAB PO ONE (15:00)
[2017-01-17] MEDS ORDERED: PRED20 PO (15:03)
[2017-02-28] MEDS ORDERED: VENL150C39 PO (16:13)
[2017-02-28] MEDS ORDERED: BUPR1TAB29 PO (16:14)
== END 2017-01-17 15:21 | disposition home or self-care (01) ==
LOC: NEPB 14:19
DX: M10.9 Gout, unspecified (principal); E11.9 Type 2 diabetes mellitus without complications
CPT/HCPCS: 99282; J7512

== ENCOUNTER 2017-12-13 23:03 | Emergency (ER) | payer OTHER ==
[~2017-12-13] VITALS: Ht 166.4 cm; Wt 81.5 kg
[~2017-12-13 23:03] MED LIST changes: +AMOX875T PO; -ASPI325T PO; +ASPI81TA23 PO; +BUPR150T12 PO; -BUPR1TAB29 PO; -DEXI60CA PO; +DEXI60CA3 PO; +FLUT50SP EACH NARE; +METF500T PO; -MULT-135 PO; +MULTTAB67 PO; -OMEG5CAP PO; -TOPI1TAB36 PO; +TOPI50TA7 PO; +TRIA.1%T TOPICAL; +VALS1TAB65 PO; +VIAG50TA PO; -VITA100T5 PO
[2017-12-13 23:05] VITALS: BP 142/73; PULSE 65; RESP 16; TEMP 97.9; O2SAT 98
[2017-12-14] MEDS ORDERED: CYCL5TAB PO (01:16)
--- NOTE | 2017-12-14 01:17 | PD ---
HPI Chief Complaint: Back/ Neck Pain or Injury Time Seen by Provider: 00:47 Travel History International Travel<30 days: No Contact w/Intl Traveler<30days: No Traveled to known affect area: No History of Present Illness HPI Patient is a 62-year-old male presenting to the emergency department for evaluation of 4 hours of back pain. Patient denies any injury or trauma. He states he has a chronic history of back pain. He reports that the pain is in his mid lower back. He denies any numbness, tingling, weakness, paresthesia, bladder bowel incontinence. Patient states that he lifted his tackle box today which could have injured his back. He has not fallen, tripped, slipped. He denies any dysuria. He states the pain is sore and tight, he rates his pain a 6 out of 10. Patient reports an allergy to Tylenol, ibuprofen. Symptoms started suddenly, there are no alleviating factors, pain is exacerbated with movement. PFSH Past Medical History ADHD: Yes Anxiety: Yes Depression: Yes Cardiovascular Problems: Yes ("MILD HEART DISEASE") Chest Pain: Yes Cerebrovascular Accident: Yes (TIA) Diabetes: Yes Patient Takes Glucophage: Yes Diminished Hearing: No Gastrointestinal Disorders: Yes (GASTROPRESIS) GERD: Yes Genitourinary: Yes (STAGE III KIDNEY DISEASE) Hiatal Hernia: Yes Hypertension: Yes (BP UNDER CONTROL W/O MEDICATIONS NOW) Kidney Stones: Yes Medical other: Yes (MILD NARCOLEPSY, ROS) Musculoskeletal: Yes (CHRONIC BACK/NECK PAIN) Neurologic: Yes (TREMORS, TBI) Respiratory: Yes Immunizations Current: Yes Migraines: Yes Pancreatitis: Yes Sleep Apnea: Yes (CPAP) Past Surgical History Cholecystectomy: Yes Other Surgery: Yes (BACK SX, LEFT LEG VEINS) Social History Alcohol Use: No Tobacco Use: No Substance Use: No Allergies-Medications (Allergen,Severity, Reaction): Coded Allergies: Sulfa (Sulfonamide Antibiotics) (Verified Allergy, Severe, Hives, 12/13/17) fentanyl (Verified Allergy, Severe, Itching, 12/13/17) hydrocodone (Verified Allergy, Severe, Itching, 12/13/17) hydromorphone (Verified Allergy, Severe, Itching, 12/13/17) oxycodone (Verified Allergy, Severe, Itching, 12/13/17) quetiapine (Verified Allergy, Severe, Itching, 12/13/17) tramadol (Verified Allergy, Severe, Itching, 12/13/17) metoclopramide (Verified Allergy, Intermediate, muscle fatigue, 12/13/17) acetaminophen (Verified Adverse Reaction, Unknown, 12/13/17) can not take because of liver problems ibuprofen (Verified Adverse Reaction, Unknown, 12/13/17) can not take because of kidneys Reported Meds & Prescriptions Reported Meds & Active Scripts Active Amoxicillin 875 Mg Tab 875 Mg PO BID Triamcinolone Topical (Triamcinolone Acetonide) 0.1% Cream 1 Applic TOPICAL BID Valsartan 160 Mg Tab 160 Mg PO DAILY Cialis (Tadalafil) 2.5 Mg Tab 2.5 Mg PO DAILY Do not exceed 1 dose/day. Mirapex (Pramipexole Dihydrochloride) 0.25 Mg Tab 2 Tab PO HS Topiramate 50 Mg Tab 50 Mg PO BID In the am and at bedtime Viagra (Sildenafil Citrate) 50 Mg Tab 50 Mg PO DAILY PRN Bupropion Sr 12 HR (Bupropion ER 12 HR (Smoking Deterrent)) 150 Mg Tab 150 Mg PO ONCE Atorvastatin (Atorvastatin Calcium) 40 Mg Tab 40 Mg PO HS Metformin (Metformin HCl) 500 Mg Tab 500 Mg PO BID With a meal Venlafaxine ER 24 HR (Venlafaxine HCl) 150 Mg Cap 150 Mg PO DAILY Terazosin (Terazosin HCl) 2 Mg Cap 4 Mg PO HS take two tabs at night Fluticasone Nasal [place] 50 Mcg/Act Naspr 50 Mcg EACH NARE BID 50 mcg/spray Dexilant (Dexlansoprazole) 60 Mg Cap.bp 60 Mg PO DAILY Reported Aspirin EC (Aspirin) 81 Mg Tabdr 81 Mg PO DAILY Multiple Vitamin 1 Tab 1 Tab PO DAILY Ritalin IR (Methylphenidate HCl) 10 Mg Tab 10 Mg PO DAILY AT 12NOON Proair Hfa 8.5 GM Inh (Albuterol Sulfate) 90 Mcg/Act Aer 2 Puff INH Q4-6H PRN 108 mcg/actuation Ritalin LA 24 HR (Methylphenidate HCl) 20 Mg Caper 20 Mg PO AT NOON Ritalin LA 24 HR (Methylphenidate HCl) 20 Mg Caper 40 Mg PO DAILY Ritalin IR (Methylphenidate HCl) 10 Mg Tab 20 Mg PO DAILY IN THE AM Review of Systems Except as stated in HPI: all other systems reviewed are Neg Musculoskeletal: Positive: Myalgias, Cramping, Pain Physical Exam Narrative GENERAL: Well-developed, well-nourished, alert male. Resting comfortably in no acute distress. SKIN: Warm and dry. HEAD: Atraumatic. Normocephalic. EYES: Pupils equal and round. No scleral icterus. No injection or drainage. ENT: No nasal bleeding or discharge. Mucous membranes pink and moist. NECK: Trachea midline. No JVD. CARDIOVASCULAR: Regular rate and rhythm. RESPIRATORY: No accessory muscle use. Clear to auscultation. Breath sounds equal bilaterally. GASTROINTESTINAL: Abdomen soft, non-tender, nondistended. Hepatic and splenic margins not palpable. MUSCULOSKELETAL: Extremities without clubbing, cyanosis, or edema. No obvious deformities. Mild tenderness to palpation paraspinal musculature and lumbar region bilaterally. No spinal tenderness or step-off noted. No gait abnormality noted. NEUROLOGICAL: Awake and alert. No obvious cranial nerve deficits. Motor grossly within normal limits. Five out of 5 muscle strength in the arms and legs. Normal speech. PSYCHIATRIC: Appropriate mood and affect; insight and judgment normal. Data Data Last Documented VS Vital Signs Date Time Temp Pulse Resp B/P (MAP) Pulse Ox O2 Delivery O2 Flow Rate FiO2 12/13/17 23:05 97.9 65 16 142/73 (96) 98 Room Air [facility] Medical Decision Making Medical Screen Exam Complete: Yes Emergency Medical Condition: Yes Medical Record Reviewed: Yes Interpretation(s) Vital Signs Date Time Temp Pulse Resp B/P (MAP) Pulse Ox O2 Delivery O2 Flow Rate FiO2 18 23:05 97.9 65 16 142/73 (96) 98 Room Air Differential Diagnosis Myalgia versus muscle spasm versus discogenic pain versus other Narrative Course Patient is well-appearing 62-year-old male presenting for evaluation of back pain that started 4 hours ago. Patient's vital signs are stable. Patient is encouraged to trial conservative management as he has had no preceding injury. Patient was encouraged to apply warm heat to the affected area, continue gentle range of motion exercises, avoid bed rest, avoid exacerbating activities. He was encouraged to follow-up with his primary doctor for any new or worsening symptoms or return to emergency department. He verbalized understanding. Patient stable for discharge. Diagnosis Primary Impression: Low back pain Qualified Codes: M54.5 - Low back pain Referrals: Primary Care Physician 2 days Patient Instructions: General Instructions, Muscle Spasm (ED), Muscle Strain ( ED) Additional Instructions: Follow-up with your primary doctor Take medications as directed, apply warm heat to the affected area, avoid exacerbating activities, avoid bed rest Return to emergency department for any new or worsening symptoms Med/Other Pt SpecificInfo: Prescription(s) given Scripts Cyclobenzaprine (Flexeril) 5 Mg Tab 5 MG PO TID Y for MUSCLE SPASM, #21 TAB 0 Refills Prov: Shayla Melgoza 12/14/17 Disposition: 01 DISCHARGE HOME Condition: Stable Shayla Melgoza Dec 14, 2017 01:17
== END 2017-12-14 01:19 | disposition home or self-care (01) ==
LOC: NEPD 23:03
DX: M54.5 Low back pain (principal); E11.9 Type 2 diabetes mellitus without complications; F90.9 Attention-deficit hyperactivity disorder, unspecified type; Z79.84 Long term (current) use of oral hypoglycemic drugs
CPT/HCPCS: 99283